=== PATIENT | female | born 2000 | race Caucasian/White ===

== ENCOUNTER → 2018-04-25 10:17 | Outpatient (CLI) | payer OTHER, SELFPAY ==
[2018-04-25 17:00] LABS: Glucose 78 mg/dL (70-100)
[2018-04-25 17:17] LABS: Follicle Stimulating Hormone 4.87 mIU/mL
[2018-04-25 17:26] LABS: Thyroid Stimulating Hormone 2.39 uIU/mL (0.47-4.68)
[2018-04-28 17:13] LABS: Insulin Level Total 8.9 uIU/mL (2.0-19.6)
== END ==
PROVIDERS: Family Provider Family Medicine; PCP Family Medicine; Visit Provider Obstetrics & Gynecology
DX: N92.6 Irregular menstruation, unspecified (principal)
CPT/HCPCS: 36415; 82947; 83001; 83002; 83525; 84439; 84443

== ENCOUNTER → 2018-10-02 20:38 | Outpatient (CLI) | payer OTHER, SELFPAY | PROVIDERS: Visit Provider Physician Assistant | DX: N30.01 Acute cystitis with hematuria (principal) | CPT/HCPCS: 87077; 87086; 87186 ==

== ENCOUNTER → 2019-07-17 09:08 | Outpatient (CLI) | payer OTHER, SELFPAY ==
[2019-07-17 09:57] LABS: Add Manual Diff / Slide Review NO; Basophils Absolute Auto 0 /uL (0-100); Basophils Percent Auto 0.6 % (0-2); Eosinophils Absolute Auto 0 /uL (0-450); Eosinophils Percent Auto 0.7 % (2-4); Hematocrit 40.6 % (36-46); Hemoglobin 13.9 g/dL (12.0-16.0); Lymphocytes Absolute Auto 1400 /uL (1100-4500); Lymphocytes Percent Auto 21.6 % (25-40); Mean Corpuscular HGB Conc 34.3 % (30-36); Mean Corpuscular Hemoglobin 29.1 PG (26-34); Mean Corpuscular Volume 84.8 fL (80-100); Monocytes Absolute Auto 600 /uL (0-900); Monocytes Percent Auto 8.8 % (3-14); Neutrophils Absolute Auto 4500 /uL (1500-7000); Neutrophils Percent Auto 68.3 % (50-75); Platelet Count 297 X10^3/uL (150-400); Red Blood Cell Count 4.79 X10^6/uL (4.0-5.2); Red Cell Distribution Width 13.1 % (11.6-14.8); White Blood Cell Count 6.6 X10^3/uL (4.5-11.0)
[2019-07-17 10:41] LABS: Alanine Aminotransferase 14 IU/L (<35); Albumin 4.4 g/dL (3.5-5.0); Albumin Globulin Ratio 1.7 (1.0-2.8); Alkaline Phosphatase 57 U/L (38-126); Aspartate Aminotransferase 19 IU/L (14-36); BUN Creatinine Ratio 17.5 (6-22); Bilirubin Total 1.1 mg/dL (0.2-1.3); Blood Urea Nitrogen 14 mg/dL (7-17); Calcium 9.6 mg/dL (8.4-10.2); Carbon Dioxide 25 mmol/L (22-32); Chloride 104 mmol/L (98-107); Estimated Glomerular Filt Rate > 60.0 mL/min (>60); Globulin 2.6 g/dL (1.7-4.1); Glucose 85 mg/dL (70-100); HEMOLYSIS < 15 (0-50); Potassium 4.4 mmol/L (3.4-5.1); Sodium 139 mmol/L (137-145)
[2019-07-17 10:58] LABS: Free T3, Triiodothyronine Free 4.12 pg/mL (2.77-5.27); Free T4, Direct Thyroxine 0.95 ng/dL (0.78-2.19)
[2019-07-17 11:12] LABS: Thyroid Stimulating Hormone 1.89 uIU/mL (0.47-4.68)
== END ==
PROVIDERS: PCP Nurse Practitioner; Visit Provider Nurse Practitioner
DX: Z00.00 Encounter for general adult medical examination without abnormal findings (principal)
CPT/HCPCS: 36415; 80053; 84439; 84443; 84481; 85025

== ENCOUNTER → 2021-01-22 14:05 | Outpatient (CLI) | payer OTHER, SELFPAY ==
[2021-01-22 15:53] LABS: Add Manual Diff / Slide Review NO; Basophils Absolute Auto 100 /uL (0-100); Basophils Percent Auto 0.7 % (0-2); Eosinophils Absolute Auto 100 /uL (0-450); Eosinophils Percent Auto 0.7 % (2-4); Hematocrit 41.7 % (36-46); Hemoglobin 13.8 g/dL (12.0-16.0); Lymphocytes Absolute Auto 1700 /uL (1100-4500); Lymphocytes Percent Auto 23.3 % (25-40); Mean Corpuscular HGB Conc 33.1 % (30-36); Mean Corpuscular Hemoglobin 28.4 PG (26-34); Mean Corpuscular Volume 85.8 fL (80-100); Monocytes Absolute Auto 600 /uL (0-900); Monocytes Percent Auto 7.8 % (3-14); Neutrophils Absolute Auto 4900 /uL (1500-7000); Neutrophils Percent Auto 67.5 % (50-75); Platelet Count 355 X10^3/uL (150-400); Red Blood Cell Count 4.85 X10^6/uL (4.0-5.2); Red Cell Distribution Width 13.6 % (11.6-14.8); White Blood Cell Count 7.3 X10^3/uL (4.5-11.0)
[2021-01-22 16:16] LABS: HEMOLYSIS < 15 (0-50); Iron 66 ug/dL (37-170)
[2021-01-22 16:27] LABS: Percent Iron Saturation 17 % (15-50); Total Iron Binding Capacity 381 ug/dL (265-497); Transferrin 295 mg/dL (206-381)
[2021-01-22 16:37] LABS: Free T3, Triiodothyronine Free 3.51 pg/mL (2.77-5.27); Free T4, Direct Thyroxine 0.97 ng/dL (0.78-2.19)
[2021-01-22 16:51] LABS: Thyroid Stimulating Hormone 1.72 uIU/mL (0.47-4.68)
== END ==
PROVIDERS: PCP Nurse Practitioner; Referring Provider Obstetrics & Gynecology; Visit Provider Obstetrics & Gynecology
DX: R53.83 Other fatigue (principal)
CPT/HCPCS: 83540; 83550; 84439; 84443; 84481; 85025

== ENCOUNTER → 2021-02-23 07:16 | Outpatient (CLI) | payer OTHER, SELFPAY ==
[2021-02-23 11:09] LABS: HEMOLYSIS < 15 (0-50); Iron 70 ug/dL (37-170)
[2021-02-23 11:19] LABS: Percent Iron Saturation 19 % (15-50); Total Iron Binding Capacity 366 ug/dL (265-497); Transferrin 319 mg/dL (206-381)
== END ==
PROVIDERS: PCP Nurse Practitioner; Referring Provider Obstetrics & Gynecology; Visit Provider Obstetrics & Gynecology
DX: E28.2 Polycystic ovarian syndrome (principal)
CPT/HCPCS: 36415; 83540; 83550

== ENCOUNTER → 2022-02-18 10:01 | Outpatient (CLI) | payer OTHER, SELFPAY ==
[2022-02-18 21:15] LABS: Hepatitis B Surface Antigen NEGATIVE s/c (NEGATIVE)
[2022-02-18 21:31] LABS: HIV 1 & 2 Ab/Ag 4th Gen Combo NEGATIVE (NEGATIVE); Hep C Virus Ab w/Reflex Quant NEGATIVE s/c (NEGATIVE)
[2022-02-19 04:37] LABS: RPR Screen Non Reactive (Non Reactive)
== END ==
PROVIDERS: PCP Nurse Practitioner; Referring Provider Physician Assistant Medical; Visit Provider Physician Assistant Medical
DX: Z11.3 Encounter for screening for infections with a predominantly sexual mode of transmission (principal)
CPT/HCPCS: 36415; 86592; 86803; 87340; 87389

== ENCOUNTER → 2022-03-08 09:48 | Outpatient (CLI) | payer OTHER, SELFPAY ==
[2022-03-08 11:08] LABS: Add Manual Diff / Slide Review NO; Basophils Absolute Auto 0 /uL (0-100); Basophils Percent Auto 0.8 % (0-2); Eosinophils Absolute Auto 0 /uL (0-450); Eosinophils Percent Auto 0.5 % (2-4); Hematocrit 41.8 % (36-46); Hemoglobin 14.2 g/dL (12.0-16.0); Lymphocytes Absolute Auto 1300 /uL (1100-4500); Lymphocytes Percent Auto 21.2 % (25-40); Mean Corpuscular HGB Conc 33.9 % (30-36); Mean Corpuscular Hemoglobin 28.7 PG (26-34); Mean Corpuscular Volume 84.7 fL (80-100); Monocytes Absolute Auto 500 /uL (0-900); Monocytes Percent Auto 8.3 % (3-14); Neutrophils Absolute Auto 4100 /uL (1500-7000); Neutrophils Percent Auto 69.2 % (50-75); Platelet Count 314 X10^3/uL (150-400); Red Blood Cell Count 4.93 X10^6/uL (4.0-5.2); Red Cell Distribution Width 13.3 % (11.6-14.8)
[2022-03-08 11:21] LABS: Alanine Aminotransferase 16 IU/L (<35); Albumin 4.6 g/dL (3.5-5.0); Albumin Globulin Ratio 1.2 (1.0-2.8); Alkaline Phosphatase 56 U/L (38-126); Aspartate Aminotransferase 26 IU/L (14-36); BUN Creatinine Ratio 11.7 (6-22); Bilirubin Total 0.8 mg/dL (0.2-1.3); Blood Urea Nitrogen 11 mg/dL (7-17); Calcium 9.5 mg/dL (8.4-10.2); Carbon Dioxide 27 mmol/L (22-32); Chloride 106 mmol/L (98-107); Estimated Glomerular Filt Rate > 60 mL/min (>60); Globulin 3.7 g/dL (1.7-4.1); Glucose 81 mg/dL (70-100); HEMOLYSIS < 15 (0-50); Potassium 4.2 mmol/L (3.4-5.1); Sodium 139 mmol/L (137-145); Total Protein 8.3 g/dL (6.3-8.2)
[2022-03-08 12:14] LABS: Free T3, Triiodothyronine Free 3.97 pg/mL (2.77-5.27); Free T4, Direct Thyroxine 1.06 ng/dL (0.78-2.19)
[2022-03-08 12:28] LABS: Thyroid Stimulating Hormone 1.24 uIU/mL (0.47-4.68)
== END ==
PROVIDERS: PCP Nurse Practitioner; Referring Provider Nurse Practitioner; Visit Provider Nurse Practitioner
DX: Z00.00 Encounter for general adult medical examination without abnormal findings (principal)
CPT/HCPCS: 36415; 80053; 84439; 84443; 84481; 85025

== ENCOUNTER → 2022-04-23 06:59 | Outpatient (CLI) | payer OTHER, SELFPAY ==
[2022-04-23 07:40] LABS: COVID19 -Nasal RAPID Negative (Negative)
== END ==
PROVIDERS: PCP Nurse Practitioner; Referring Provider Internal Medicine; Visit Provider Internal Medicine
DX: Z20.822 Contact with and (suspected) exposure to COVID-19 (principal); J45.909 Unspecified asthma, uncomplicated
CPT/HCPCS: 87635; 94010; C9803

== ENCOUNTER → 2022-04-23 07:05 | Outpatient (CLI) | payer OTHER, SELFPAY ==
--- NOTE | 2022-05-01 10:36 | PM.PFT.1 ---
Pulmonary Function Test Referral & Results Date Patient Seen: 04/23/22 Requesting provider: Jenna Lewis Results: The spirometry demonstrates an FVC of 3.10 L which is 87% of predicted. The FEV1 was measured at 2.11 L which is 68% of predicted. The FEV1/FVC ratio was 68 which is 79% of predicted. Interpretation: This study, which was forced spirometry only, demonstrates presence of mild to moderate obstructive lung disease
== END ==
PROVIDERS: PCP Nurse Practitioner; Referring Provider Nurse Practitioner; Visit Provider Nurse Practitioner
DX: J45.909 Unspecified asthma, uncomplicated (principal)
CPT/HCPCS: 94010

== ENCOUNTER → 2022-08-11 07:15 | Outpatient (CLI) | payer BC, SELFPAY ==
[2022-08-11 10:11] LABS: Urine N gonorrhoeae NOT DETECTED
[2022-08-11 10:12] LABS: Urine Chlamydia NOT DETECTED
[2022-08-12 06:16] LABS: HSV 2 IGG AB < 0.91 index (0.00-0.90)
[2022-08-12 07:53] LABS: RPR Screen Non Reactive (Non Reactive)
[2022-08-12 16:31] LABS: HIV 1 & 2 Ab/Ag 4th Gen Combo NEGATIVE (NEGATIVE); Hep C Virus Ab w/Reflex Quant NEGATIVE s/c (NEGATIVE); Hepatitis B Surface Antigen NEGATIVE s/c (NEGATIVE)
== END ==
PROVIDERS: PCP Nurse Practitioner; Referring Provider Nurse Practitioner; Visit Provider Nurse Practitioner
DX: Z11.3 Encounter for screening for infections with a predominantly sexual mode of transmission (principal)
CPT/HCPCS: 36415; 86592; 86695; 86696; 86803; 87340; 87389; 87491; 87591

== ENCOUNTER → 2023-03-29 11:39 | Outpatient (CLI) | payer BC, SELFPAY ==
[2023-03-29 12:36] LABS: Appearance Urine UA CLEAR; Bilirubin Urine UA NEGATIVE (NEGATIVE); Color Urine UA YELLOW; Glucose Urine UA NEGATIVE (Negative); Ketones Urine UA NEGATIVE (NEGATIVE); Leukocyte Esterase Urine UA 1+ (NEGATIVE); Nitrite Urine UA NEGATIVE (Negative); Occult Blood Urine UA TRACE-INTACT (Negative); Protein Urine UA NEGATIVE (Negative); Specific Gravity Urine UA <=1.005 (1.000-1.035); Urobilinogen Urine UA 0.2 E.U./dL (0.2)
[2023-03-29 12:50] LABS: Bacteria Urine Many (>30); Culture Indicated Urine Specimen Cultured; RBC Urine None Seen (0-5/HPF); Squamous Epithelial Cell Urine 0-1 /HPF (0-5/HPF); WBC Urine 1-5/HPF (0-5/HPF)
[2023-03-29 13:52] LABS: Urine N gonorrhoeae NOT DETECTED
[2023-03-29 13:57] LABS: Urine Chlamydia NOT DETECTED
== END ==
PROVIDERS: PCP Nurse Practitioner; Referring Provider Family Medicine; Visit Provider Family Medicine
DX: Z11.3 Encounter for screening for infections with a predominantly sexual mode of transmission (principal); R39.9 Unspecified symptoms and signs involving the genitourinary system
CPT/HCPCS: 81001; 87077; 87086; 87186; 87491; 87591

== ENCOUNTER → 2023-04-04 07:35 | Outpatient (CLI) | payer BC, SELFPAY ==
[2023-04-04 08:45] LABS: Add Manual Diff / Slide Review NO; Basophils Absolute Auto 0 /uL (0-100); Basophils Percent Auto 0.6 % (0-2); Eosinophils Absolute Auto 100 /uL (0-450); Eosinophils Percent Auto 1.6 % (2-4); Hematocrit 38.5 % (36-46); Lymphocytes Absolute Auto 2300 /uL (1100-4500); Lymphocytes Percent Auto 34.8 % (25-40); Mean Corpuscular HGB Conc 33.8 % (30-36); Mean Corpuscular Hemoglobin 28.7 PG (26-34); Monocytes Absolute Auto 600 /uL (0-900); Monocytes Percent Auto 8.6 % (3-14); Neutrophils Absolute Auto 3500 /uL (1500-7000); Neutrophils Percent Auto 54.4 % (50-75); Platelet Count 327 X10^3/uL (150-400); Red Blood Cell Count 4.53 X10^6/uL (4.0-5.2); Red Cell Distribution Width 13.1 % (11.6-14.8); White Blood Cell Count 6.5 X10^3/uL (4.5-11.0)
[2023-04-04 09:09] LABS: Alanine Aminotransferase 16 IU/L (<35); Albumin Globulin Ratio 1.3 (1.0-2.8); Alkaline Phosphatase 52 U/L (38-126); Aspartate Aminotransferase 18 IU/L (14-36); BUN Creatinine Ratio 17.5 (6-22); Bilirubin Total 0.5 mg/dL (0.2-1.3); Blood Urea Nitrogen 14 mg/dL (7-17); Calcium 9.3 mg/dL (8.4-10.2); Carbon Dioxide 21 mmol/L (22-32); Chloride 103 mmol/L (98-107); Cholesterol 164 mg/dL (140-199); Estimated Glomerular Filt Rate > 60 mL/min (>60); Glucose 82 mg/dL (70-100); HDL Cholesterol 61 mg/dL (40-60); HEMOLYSIS < 15 (0-50); LDL Cholesterol Calculated 85 mg/dL (<100); Potassium 3.8 mmol/L (3.4-5.1); Sodium 134 mmol/L (137-145); Triglycerides 90 mg/dL (35-150)
[2023-04-04 09:36] LABS: TSH w/ Reflex to FT4 2.48 uIU/mL (0.47-4.68)
[2023-04-04 16:34] LABS: Hepatitis B Surface Antigen NEGATIVE s/c (NEGATIVE)
[2023-04-04 16:56] LABS: HIV 1 & 2 Ab/Ag 4th Gen Combo NEGATIVE (NEGATIVE); Hep C Virus Ab w/Reflex Quant NEGATIVE s/c (NEGATIVE)
[2023-04-05 06:08] LABS: RPR Screen Non Reactive (Non Reactive)
== END ==
PROVIDERS: PCP Nurse Practitioner; Referring Provider Family Medicine; Visit Provider Family Medicine
DX: R55 Syncope and collapse (principal); Z11.3 Encounter for screening for infections with a predominantly sexual mode of transmission; Z91.89 Other specified personal risk factors, not elsewhere classified
CPT/HCPCS: 36415; 80053; 80061; 84443; 85025; 86592; 86695; 86696; 86803; 87340; 87389

== ENCOUNTER → 2023-07-08 07:28 | Outpatient (CLI) | payer BC, SELFPAY ==
[2023-07-08 08:30] LABS: Appearance Urine UA CLEAR; Bilirubin Urine UA NEGATIVE (NEGATIVE); Color Urine UA YELLOW; Glucose Urine UA NEGATIVE (Negative); Ketones Urine UA NEGATIVE (NEGATIVE); Leukocyte Esterase Urine UA NEGATIVE (NEGATIVE); Nitrite Urine UA NEGATIVE (Negative); Occult Blood Urine UA NEGATIVE (Negative); Protein Urine UA TRACE (Negative); Specific Gravity Urine UA >=1.030 (1.000-1.035); Urobilinogen Urine UA 0.2 E.U./dL (0.2)
[2023-07-08 08:49] LABS: pH Urine UA 5.5 (4.5-8.0)
[2023-07-08 08:50] LABS: Bacteria Urine Occasional (0-1); Culture Indicated Urine Specimen Cultured; Mucus Urine 3+ (Negative); RBC Urine 0-1/HPF (0-5/HPF); Squamous Epithelial Cell Urine 0-1 /HPF (0-5/HPF); WBC Urine 0-1/HPF (0-5/HPF)
[2023-07-08 09:27] LABS: Hepatitis B Surface Antigen NEGATIVE s/c (NEGATIVE)
[2023-07-08 09:45] LABS: HIV 1 & 2 Ab/Ag 4th Gen Combo NEGATIVE (NEGATIVE); Hep C Virus Ab w/Reflex Quant NEGATIVE s/c (NEGATIVE)
[2023-07-08 09:56] LABS: Urine N gonorrhoeae NOT DETECTED
[2023-07-08 10:08] LABS: Urine Chlamydia NOT DETECTED
[2023-07-09 04:10] LABS: RPR Screen Non Reactive (Non Reactive)
[2023-07-24 18:33] LABS: HSV 2 IGG AB < 0.91
== END ==
PROVIDERS: PCP Nurse Practitioner; Referring Provider Family Medicine; Visit Provider Family Medicine
DX: Z11.3 Encounter for screening for infections with a predominantly sexual mode of transmission (principal); R55 Syncope and collapse; R30.0 Dysuria; Z91.89 Other specified personal risk factors, not elsewhere classified
CPT/HCPCS: 36415; 81001; 86592; 86695; 86696; 86803; 87086; 87147; 87340; 87389; 87491; 87591

== ENCOUNTER → 2023-07-22 15:06 | Outpatient (CLI) | payer BC, SELFPAY | PROVIDERS: PCP Nurse Practitioner; Visit Provider Student in an Organized Health Care Education/Training Program | DX: R39.9 Unspecified symptoms and signs involving the genitourinary system (principal); N89.8 Other specified noninflammatory disorders of vagina | CPT/HCPCS: 87086; 87210 ==

== ENCOUNTER 2024-05-21 17:34 | Emergency (ER) | payer BC, SELFPAY ==
[2024-05-21] VITALS (11 sets, daily range): BP systolic 116–139; BP diastolic 63–81; PULSE 78–106; RESP 17–18; TEMP 36.8; O2SAT 93–100; BMI 25.2
--- NOTE | 2024-05-21 17:55 | EKG_ITS ---
[address] [address] Test Date: 2024-05-21 Pat Name: Jessica Sargent Department: [facility] Room: Gender: Female [employer]: : 2000 Requested By: Order Number: [id number] Reading MD: Ryan Butler MD Measurements Intervals [place] Rate: 78 P: 63 PA: 154 QRS: 94 QRSD: 76 T: 13 QT: 366 QTc: 417 Interpretive Statements Normal sinus rhythm Rightward axis Electronically Signed On 05-22-2024 7:20:37 PST by Ryan Butler MD
--- NOTE | 2024-05-21 20:55 | ED_ITS ---
HPI - General Adult General Chief complaint: Dizziness Stated complaint: Dizzy spells, Low back/Head Px Time Seen by Provider: 05/21/24 20:40 Source: patient Mode of arrival: Ambulatory History of Present Illness HPI narrative: Patient is a 24-year-old female with no significant past medical history comes into the ED from home for evaluation of multiple complaints. She states that over the past several days she has been experiencing what sounds to be flu-like symptoms. She states that when she wakes up she has intermittent lightheaded dizziness, but did not actually pass out does not have any chest pain shortness of breath associated with this. She also states that she has been feel like she has been having hot flashes ongoing and persistent for the past several days nothing makes this better or worse. She is also stating that she has been having intermittent myalgias no specific area. She is not complaining of any actual chest pain shortness of breath she feels like she has been having chills but no fevers. Denies any nausea vomiting abdominal pain or any other GI/ symptoms. No recent travel no known sick contacts, she states that she did call her primary care doctor instructed her to come into the ED for further evaluation treatment. Related Data Home Medications Medication Instructions Recorded Confirmed ketoconazole 2 % shampoo See Rx Instructions topical 08/23/22 01/23/24 .COMPLEX fluocinonide 0.05 % topical topical Seborrheic Dermatitis 12/30/23 01/23/24 solution ketoconazole 2 % cream-miconazole ea topical Seborrheic Dermatitis 12/30/23 01/23/24 2 % tincture Previous Rx's Medication Instructions Recorded albuterol sulfate 90 mcg/actuation 2 puff inhalation Q4-6H PRN 08/31/23 aerosol inhaler (ProAir HFA) shortness of breath or wheezing #8.5 grams levonorgestrel-ethinyl estradiol 1 tab PO DAILY #84 tabs 02/10/24 0.1 mg-20 mcg tablet (Vienva) Allergies Allergy/AdvReac Type Severity Reaction Status Date / Time No Known Drug Allergies Allergy Verified 01/23/24 07:54 Review of Systems Review of Systems Narrative: General: Positive myalgias, chills, denies fevers, HEENT: Denies headache, eye drainage, eye irritation, head trauma, sore throat, voice change Cardiovascular: Denies any chest pain, palpitations, shortness of breath, tachycardia Respiratory: Denies any shortness of breath, cough, wheeze, stridor GI/: Denies any abdominal pain, nausea, vomiting, diarrhea, bright red blood per rectum, melanotic stools, urinary frequency, urinary retention, dysuria, hematuria MSK: Denies any joint pain, muscle pains, swelling Skin: Denies any rashes, lesions, discoloration Neuro: positive lightheadedness, denies headache, denies visual disturbances Psych: Denies SI/HI Patient History Medical History (Updated 05/21/24 @ 22:30 by Tristan Solorzano DO) IT band syndrome Benign thyroid cyst (08/2015) Psoriasis of scalp (2006) Irregular periods/menstrual cycles (2009) PCOS (polycystic ovarian syndrome) (~2009) Family History Grandfather Age: 71 Hypertension Grandmother Age: 71 Hypertension Thyroid disorder Mother Age: 43 Hypertension PCOS (polycystic ovarian syndrome) Diabetes mellitus Grandfather Age: 80 Hypertension Grandmother Age: 75 Hypertension Brother No problems noted. Brother No problems noted. Father No problems noted. Social History Smoking Status: Never smoker Smoking Status: Never smoker alcohol intake frequency: other Substance Use Type: does not use Exam Narrative Exam Narrative: General: Cooperative, comfortable, well-developed, not in acute distress HEENT: Normocephalic, atraumatic, PERRLA, normal sclera, eyelids normal, Neck: Active full range of motion, atraumatic Chest: Normal to inspection, negative crepitus, no overlying erythema ecchymosis Respiratory: Normal respiratory effort, not in acute respiratory distress, clear to auscultation bilaterally negative cough, wheeze, tachypnea, rhonchi, rales Cardiology: Regular rate rhythm negative gallop, murmur, rubs GI/: Normal to inspection, soft, nonrigid, no tenderness to palpation, exam deferred MSK: Full range of active range of motion of all 4 extremities, atraumatic Skin: No rashes lesions noted Neuro: Alert awake oriented x3, moves all 4 extremities spontaneously, cranial nerves intact, able to answer all questions appropriately follows commands appropriately Psych: Cooperative, negative suicidal or homicidal ideations Initial Vital Signs Initial Vital Signs: Vital Signs Temperature 98.3 F 05/21/24 17:41 Pulse Rate 78 05/21/24 17:41 Respiratory Rate 18 05/21/24 17:41 Blood Pressure 122/75 05/21/24 17:41 Pulse Oximetry 100 05/21/24 17:41 Oxygen Delivery Method Room Air 05/21/24 17:41 Course Orders Ordered: ED Orders 05/21/24 17:47 EKG-12 Lead Stat 05/21/24 20:55 XR chest 1V Stat 05/21/24 21:10 CBC Auto Diff [Complete Blood Count AUTO DIFF] Stat CMP [Comprehensive Metabolic Panel] Stat Lipase Stat MAG [Magnesium] Stat Respiratory Panel (Film Array) Stat Troponin & CK Cardiac Panel Stat 05/21/24 21:14 Ictotest Urine Stat Urine Culture Stat Urine Microscopic Stat Vital Signs Vital signs: Vital Signs - 8 hr 05/21/24 17:41 05/21/24 18:54 05/21/24 18:54 Temperature 98.3 F Pulse Rate 78 81 Respiratory Rate 18 Blood Pressure 122/75 139/76 Pulse Oximetry 100 99 Oxygen Delivery Method Room Air 05/21/24 19:00 05/21/24 19:00 05/21/24 19:30 Temperature Pulse Rate 80 Respiratory Rate 18 17 Blood Pressure 120/81 116/71 Pulse Oximetry 100 Oxygen Delivery Method Room Air 05/21/24 19:30 05/21/24 20:00 05/21/24 20:00 Temperature Pulse Rate 81 86 Respiratory Rate Blood Pressure 122/74 Pulse Oximetry 100 93 Oxygen Delivery Method Room Air 05/21/24 20:30 05/21/24 20:30 05/21/24 21:00 Temperature Pulse Rate 88 92 H Respiratory Rate 17 Blood Pressure 119/72 Pulse Oximetry 100 100 Oxygen Delivery Method Room Air 05/21/24 21:21 05/21/24 21:21 05/21/24 21:30 Temperature Pulse Rate 94 H Respiratory Rate 17 Blood Pressure 126/80 128/77 Pulse Oximetry 100 Oxygen Delivery Method Room Air 05/21/24 21:30 05/21/24 22:00 05/21/24 22:00 Temperature Pulse Rate 89 96 H Respiratory Rate Blood Pressure 127/63 Pulse Oximetry 100 99 Oxygen Delivery Method 05/21/24 22:30 Temperature Pulse Rate 106 H Respiratory Rate 18 Blood Pressure Pulse Oximetry 99 Oxygen Delivery Method Room Air Medical Decision Making Differential Diagnosis Differential Diagnosis: Electrolyte abnormality, pneumonia, COVID, flu, viral infection, ACS Lab Data 05/21/24 21:10 05/21/24 21:10 Labs: Lab Results 05/21/24 05/21/24 Range/Units 21:10 21:14 WBC 3.7 L (4.5-11.0) X10^3/uL RBC 5.09 (4.0-5.2) X10^6/uL Hgb 14.8 (12.0-16.0) g/dL Hct 43.1 (36-46) % MCV 84.8 (80-100) fL MCH 29.1 (26-34) PG MCHC 34.2 (30-36) % RDW 13.6 (11.6-14.8) % Plt Count 185 (150-400) X10^3/uL Neut % (Auto) 74.6 (50-75) % Lymph % (Auto) 14.7 L (25-40) % Mcleod % (Auto) 9.9 (3-14) % Eos % (Auto) 0.0 L (2-4) % Baso % (Auto) 0.8 (0-2) % Neut # (Auto) 2800 (3593-4931) /uL Lymph # (Auto) 500 L (9994-0940) /uL Mcleod # (Auto) 400 (0-900) /uL Eos # (Auto) 0 (0-450) /uL Baso # (Auto) 0 (0-100) /uL Sodium 134 L (137-145) mmol/L Potassium 3.5 (3.4-5.1) mmol/L Chloride 100 (98-107) mmol/L Carbon Dioxide 23 (22-32) mmol/L BUN 9 (7-17) mg/dL Creatinine 0.79 (0.52-1.04) mg/dL Estimated GFR > 60 (>60) mL/min BUN/Creatinine Ratio 11.4 (6-22) Glucose 88 (70-100) mg/dL Calcium 9.2 (8.4-10.2) mg/dL Magnesium 1.7 (1.6-2.3) mg/dL Total Bilirubin 0.8 (0.2-1.3) mg/dL AST 47 H (14-36) IU/L ALT 43 H (<35) IU/L Alkaline Phosphatase 80 (38-126) U/L Total Creatine Kinase 83 (30-135) U/L Troponin I < 0.012 (0.01-0.034) ng/mL Total Protein 8.3 H (6.3-8.2) g/dL Albumin 4.4 (3.5-5.0) g/dL Globulin 3.9 (1.7-4.1) g/dL Albumin/Globulin Ratio 1.1 (1.0-2.8) Lipase 74 (23-300) U/L Ur Bilirubin Confirm Negative (Negative) Urine RBC 5-10/hpf H (0-5/HPF) Urine WBC 0-1/hpf (0-5/HPF) Ur Squamous Epith Cells 0-1 /hpf (0-5/HPF) Urine Bacteria Few (2-10) H (None) Urine Mucus 2+ H (Negative) Ur Culture Indicated? Specimen cultured Vol Urine Centrifuged 10ml (spun) Chlamy pneumoniae PCR Not detected (Not Detect) Adenovirus (PCR) Not detected (Not Detect) B. pertussis DNA (PCR) Not detected (Not Detect) B.parapertussis DNA PCR Not detected (Not Detecte) Coronavirus OC43 (PCR) Not detected (Not Detect) Coronavirus HKU1 (PCR) Not detected (Not Detect) Coronavirus 229E (PCR) Not detected (Not Detect) SARS-CoV-2 (PCR) Not detected (Not Detecte) Coronavirus NL63 (PCR) Not detected (Not Detect) Human Metapneumovir PCR Not detected (Not Detect) Influenza Type A (PCR) Not detected (Not Detect) Influenza Type B (PCR) Not detected (Not Detect) M. pneumoniae (PCR) Not detected (Not Detect) Parainfluenza 1 (PCR) Not detected (Not Detect) Parainfluenza 2 (PCR) Not detected (Not Detect) Parainfluenza 3 (PCR) Not detected (Not Detect) Parainfluenza 4 (PCR) Not detected (Not Detect) RSV (PCR) Not detected (Not Detect) Entero/Rhino (PCR) Detected H (Not Detect) Point of Care Testing Test Results Negative Urine Dip Bedside Urine Glucose 100 mg/dl Bedside Urine Bilirubin + 1 Bedside Urine Ketone ++ 40 Urine Specific [place] 1.025 Bedside Urine Occult Blood - Negative Bedside Urine pH 6.0 Bedside Urine Protein + 30 Bedside Urine Urobilinogen - Negative Bedside Urine Nitrite - Negative Bedside Urine Leukocytes +/- 15 Esterase Point of care testing: Point of Care Testing Test Results Negative Urine Dip Bedside Urine Glucose 100 mg/dl Bedside Urine Bilirubin + 1 Bedside Urine Ketone ++ 40 Urine Specific [place] 1.025 Bedside Urine Occult Blood - Negative Bedside Urine pH 6.0 Bedside Urine Protein + 30 Bedside Urine Urobilinogen - Negative Bedside Urine Nitrite - Negative Bedside Urine Leukocytes +/- 15 Esterase Imaging Data Chest x-ray: Radiologist's Impression: [address] [address] XRay Report Signed Patient: Jessica Sargent MR#: [id number] : 2000 Acct:[id number] Age/Sex: 24 / F Date of Service: 05/21/24 Loc: ED Accession Number: [id number] Procedure: XR chest 1V Ordering Provider: Tristan Solorzano D.O. PROCEDURE: XR CHEST 1V INDICATIONS: flu like symptoms TECHNIQUE: One view of the chest was acquired. COMPARISON: None. FINDINGS: Surgical changes and devices: None. Lungs and pleura: Lungs are clear. No pleural effusions or pneumothorax. Mediastinum: Mediastinal contours appear normal. Heart size is normal. Bones and chest wall: No suspicious bony lesions. Overlying soft tissues appear unremarkable. IMPRESSION: No acute cardiopulmonary abnormality is seen. ECG Data Interpretation: EKG interpreted ED physician, sinuses 78 beats per minute, QTC 417, normal axis, nonspecific ST, no STEMI MDM Narrative Medical decision making narrative: patient is a 24-year-old female with no significant past medical history presents for multiple complaints, stating that she has been having some dizziness described as room spinning sensations intermittently whenever she wakes up for the past several days, is also complaining of intermittent myalgias, some dull headaches but no actual vision loss or disturbances. States that she called her primary care doctor instructed to come into the ED for further evaluation treatment. Patient had lab work performed here in the emergency department no acute findings, it was noted that she was anterior/ rhino virus positive therefore her constellation of symptoms most likely secondary to a viral infection. EKG was nonischemic, troponin negative, she was given strict return precautions she verbalized understanding of this and agrees to being discharged home with outpatient follow up Discharge Plan Departure Patient Disposition: Home Clinical Impression: Rhinovirus Activity Restrictions/Additional Instructions: Please read the discharge instructions sheet carefully and bring all papers to all doctor follow-up visits, as it may contain information that your doctor may want to see. Disease processes change and evolve, if your symptoms worsen or if you develop any new symptoms that are concerning to you please return for evaluation. Your evaluation today does not show any evidence of any life- threatening/serious illnesses requiring admission to the hospital or surgery. Please follow-up with your doctor for re-evaluation in approximately 1 day. Seek immediate medical attention for any worrisome symptoms. Prescriptions: No Action ketoconazole-miconazole 2-2 % kit, cream and solution topical Patient Comments: Use only as needed for flake control fluocinonide 0.05 % solution topical Patient Comments: Use only as needed for flare/itch control albuterol sulfate [ProAir HFA] 90 mcg/actuation HFA aerosol inhaler 2 puff inhalation Q4-6H PRN (Reason: shortness of breath or wheezing) Qty: 8.5 2RF levonorgestrel-ethinyl estrad [Vienva] 0.1-20 mg-mcg tablet 1 tab PO DAILY Qty: 84 2RF ketoconazole 2 % shampoo See Rx Instructions topical .COMPLEX Patient Comments: LATHER INTO THE AFFECTED AREA ON SCALP FOR 5 MINUTES THEN RINSE. USE 3-4 X WEEKLY NEEDED Rx Instructions: ATHER INTO THE AFFECTED AREA ON SCALP FOR 5 MINUTES THEN RINSE. USE 3-4 X WEEKLY NEEDED Referrals: Maria Dolores Kessler MD [Primary Care Provider] - Stand Alone Forms: Patient Portal/API/Survey
[2024-05-21 21:24] LABS: Add Manual Diff / Slide Review NO; Basophils Absolute Auto 0 /uL (0-100); Basophils Percent Auto 0.8 % (0-2); Eosinophils Absolute Auto 0 /uL (0-450); Hematocrit 43.1 % (36-46); Hemoglobin 14.8 g/dL (12.0-16.0); Lymphocytes Absolute Auto 500 /uL (1100-4500); Lymphocytes Percent Auto 14.7 % (25-40); Mean Corpuscular HGB Conc 34.2 % (30-36); Mean Corpuscular Hemoglobin 29.1 PG (26-34); Mean Corpuscular Volume 84.8 fL (80-100); Monocytes Absolute Auto 400 /uL (0-900); Monocytes Percent Auto 9.9 % (3-14); Neutrophils Absolute Auto 2800 /uL (1500-7000); Neutrophils Percent Auto 74.6 % (50-75); Platelet Count 185 X10^3/uL (150-400); Red Blood Cell Count 5.09 X10^6/uL (4.0-5.2); Red Cell Distribution Width 13.6 % (11.6-14.8); White Blood Cell Count 3.7 X10^3/uL (4.5-11.0)
[2024-05-21 21:34] LABS: Alanine Aminotransferase 43 IU/L (<35); Albumin 4.4 g/dL (3.5-5.0); Albumin Globulin Ratio 1.1 (1.0-2.8); Alkaline Phosphatase 80 U/L (38-126); Aspartate Aminotransferase 47 IU/L (14-36); BUN Creatinine Ratio 11.4 (6-22); Bilirubin Total 0.8 mg/dL (0.2-1.3); Blood Urea Nitrogen 9 mg/dL (7-17); Calcium 9.2 mg/dL (8.4-10.2); Carbon Dioxide 23 mmol/L (22-32); Chloride 100 mmol/L (98-107); Creatine Kinase 83 U/L (30-135); Estimated Glomerular Filt Rate > 60 mL/min (>60); Globulin 3.9 g/dL (1.7-4.1); Glucose 88 mg/dL (70-100); HEMOLYSIS < 15 (0-50); Lipase 74 U/L (23-300); Magnesium 1.7 mg/dL (1.6-2.3); Potassium 3.5 mmol/L (3.4-5.1); Sodium 134 mmol/L (137-145); Total Protein 8.3 g/dL (6.3-8.2)
[2024-05-21 21:37] LABS: Ictotest Urine Negative (Negative)
[2024-05-21 21:44] LABS: Urine Volume 10mL (spun)
[2024-05-21 21:45] LABS: Bacteria Urine Few (2-10); Mucus Urine 2+ (Negative); RBC Urine 5-10/HPF (0-5/HPF); Squamous Epithelial Cell Urine 0-1 /HPF (0-5/HPF); WBC Urine 0-1/HPF (0-5/HPF)
[2024-05-21 21:46] LABS: Troponin I < 0.012 ng/mL (0.01-0.034)
[2024-05-21 21:47] LABS: Culture Indicated Urine Specimen Cultured
[2024-05-21 22:12] LABS: Adenovirus Not Detected (Not Detect); B. parapertussis Not Detected (Not Detecte); Bordetella pertussis Not Detected (Not Detect); Chlamydophila pneumoniae Not Detected (Not Detect); Coronavirus 229E Not Detected (Not Detect); Coronavirus HKU1 Not Detected (Not Detect); Coronavirus NL 63 Not Detected (Not Detect); Coronavirus OC43 Not Detected (Not Detect); Human Metapneumovirus Not Detected (Not Detect); Human Rhinovirus/Enterovirus Detected (Not Detect); Influenza A Not Detected (Not Detect); Influenza B Not Detected (Not Detect); Mycoplasma pneumoniae Not Detected (Not Detect); Parainfluenza Virus 1 Not Detected (Not Detect); Parainfluenza Virus 2 Not Detected (Not Detect); Parainfluenza Virus 3 Not Detected (Not Detect); Parainfluenza Virus 4 Not Detected (Not Detect); Respiratory Syncytial Virus Not Detected (Not Detect); SARS- CoV-2 Not Detected (Not Detecte)
== END 2024-05-21 22:43 | disposition home or self-care (01) ==
PROVIDERS: Emergency Provider Student in an Organized Health Care Education/Training Program; PCP Family Medicine
DX: B34.8 Other viral infections of unspecified site (principal); R07.9 Chest pain, unspecified; Z11.52 Encounter for screening for COVID-19
CPT/HCPCS: 36415; 71045; 80053; 81003; 81015; 81025; 82550; 83690; 83735; 84484; 85025; 87086; 87633; 93005; 93010; 99283; 99284